=== PATIENT | female | born 1950 | race Caucasian/White ===

== ENCOUNTER 2018-12-24 16:55 | Emergency (ER) | payer OTHER ==
[~2018-12-24] VITALS: Ht 167.6 cm; Wt 89.8 kg
[~2018-12-24 16:55] MED LIST: ADVIL PM CAPLE1 EACH PO; ALBUTEROL2.5 MG/0.5 INH; ASPIRIN325 PO; IBUPROFEN 200200 M1 PO; LIPITOR10 MG PO; OMEPRAZOLE20 M2 PO; OMEPRAZOLE40 MG PO; PROAIR HFA8.5 GM INH; SINGULAIR 10 MG10 M1 PO; TYLENOL325 MG PO; VENTOLIN HFA 1818 GM INH; ZANTAC 150MG T150 MG PO
[2018-12-24 17:35] LABS: ABSOLUTE EOSINOPHILS 0.1 thou/uL (0.0-0.7); ABSOLUTE LYMPHOCYTES 1.2 thou/uL (0.8-5.3); ABSOLUTE MONOCYTES 0.4 thou/uL (0.0-1.2); BASOPHILS 0.6 %; EOSINOPHILS 1.2 %; HEMATOCRIT 42.9 % (37.0-47.0); HEMOGLOBIN 14.4 gm/dL (12.0-15.0); LYMPHOCYTES 21.5 %; MCH 30.2 pg (26.0-34.0); MCHC 33.6 g/dL (28.0-37.0); MCV 89.8 fL (80.0-100.0); MONOCYTES 7.7 %; MPV 8.4 fl. (7.2-11.1); NUCLEATED RBCS 0 /100WBC; PLATELET COUNT* 169 thou/uL (150-400); RBC 4.77 mil/uL (4.20-5.00); RDW-CV 14.2 % (10.5-14.5); WBC 5.8 thou/uL (4.0-11.0)
[2018-12-24 17:46] LABS: ANION GAP 8 mmol/L (7-16); BUN 15 mg/dL (7-18); CALCIUM 8.9 mg/dL (8.5-10.1); CHLORIDE 103 mmol/L (98-107); CO2 31 mmol/L (21-32); GLUCOSE 120 mg/dL (70-99); POTASSIUM 4.4 mmol/L (3.5-5.1); SODIUM 142 mmol/L (136-145)
[2018-12-24 17:58] LABS: ALBUMIN 3.7 g/dL (3.4-5.0); ALKALINE PHOSPHATASE 85 U/L (46-116); LIPASE 157 U/L (73-393); NT-PRO BRAIN NAT PEPTIDE 1888 pg/mL (<300); SGOT 23 U/L (15-37); SGPT 19 U/L (30-65); TOTAL BILIRUBIN 0.5 mg/dL (<0.1-1.0); TOTAL PROTEIN 7.4 g/dL (6.4-8.2); TROPONIN-I LEVEL <0.06 ng/mL (<0.06)
[2018-12-24 18:03] LABS: APTT 46.6 Seconds (25.0-31.3)
[2018-12-24 18:10] LABS: PROTIME 47.6 Seconds (9.20-11.50)
[2018-12-24 18:12] LABS: INR 4.9
[2018-12-24 18:30] VITALS: BP 137/92
--- NOTE | 2018-12-26 13:11 | EKG ---
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
== END 2018-12-24 18:30 | disposition short-term general hospital (02) ==
LOC: M.ERS 16:55
PROVIDERS: Emergency Medicine
DX: I62.9 Nontraumatic intracranial hemorrhage, unspecified (principal); J45.909 Unspecified asthma, uncomplicated; E66.9 Obesity, unspecified; Z68.32 Body mass index [BMI] 32.0-32.9, adult; Z91.048 Other nonmedicinal substance allergy status